=== PATIENT | female | born 1990 | race Caucasian/White ===

== ENCOUNTER 2018-04-13 16:02 | Emergency (ER) | payer MEDICAID, OTHER ==
[2018-04-13] MEDS: LORAZEPAM 1 MG TAB PO (16:48)
[2018-04-13 17:16] LABS: ADD UMIC YES; UR ASCORBIC ACID 20 mg/dL (NEGATIVE); UR BILIRUBIN (Dip) NEGATIVE (NEGATIVE); UR BLOOD (Dip) NEGATIVE (NEGATIVE); UR CLARITY SLIGHTLY CLOUDY (CLEAR); UR COLOR YELLOW (YELLOW); UR GLUCOSE (Dip) NEGATIVE (NEGATIVE); UR KETONES (Dip) NEGATIVE (NEGATIVE); UR LEUKOCYTE ESTERASE (Dip) 3+ Leu/ul (NEGATIVE); UR NITRITE (Dip) NEGATIVE (NEGATIVE); UR RBC 2 /HPF (0-5); UR SQUAMOUS EPITHELIAL CELL FEW /HPF (FEW); UR TOTAL PROTEIN (Dip) NEGATIVE (NEGATIVE); UR UROBILINOGEN (Dip) NEGATIVE (NEGATIVE); UR WBC 35 /HPF (0-5)
== END 2018-04-13 19:50 | disposition home or self-care (01) ==
LOC: FTE 16:02
DX: N39.0 Urinary tract infection, site not specified (principal); R10.2 Pelvic and perineal pain
CPT/HCPCS: 81001; 84703; 99283

== ENCOUNTER 2018-09-26 16:59 | Emergency (ER) | payer SELFPAY, MEDICAID | END 2018-09-26 17:59 | disposition home or self-care (01) | LOC: FTE 16:59 | DX: H92.02 Otalgia, left ear (principal) | CPT/HCPCS: 99283 ==

== ENCOUNTER 2018-10-29 17:20 | Emergency (ER) | payer SELFPAY ==
[2018-10-29 18:54] LABS: URINE BLOOD (Dip) POC Trace-lysed (NEGATIVE); URINE GLUCOSE (Dip) POC Negative (NEGATIVE); URINE KETONES (Dip) POC Negative (NEGATIVE); URINE LEUKOCYTE EST (Dip) POC 1+ (NEGATIVE); URINE NITRITE (Dip) POC Negative (NEGATIVE); URINE TOTAL PROTEIN POC Negative (NEGATIVE)
[2018-10-29] MEDS: KETOROLAC 60 MG INJ IM (19:11)
== END 2018-10-29 19:55 | disposition home or self-care (01) ==
LOC: FTE 17:20
DX: S33.5XXA Sprain of ligaments of lumbar spine, initial encounter (principal); V49.40XA Driver injured in collision with unspecified motor vehicles in traffic accident, initial encounter
CPT/HCPCS: 72100; 81003; 81025; 96372; 99284-25